=== PATIENT | male | born 1945 | race Asian ===

== ENCOUNTER 2017-04-05 11:49 | Emergency (ER) | payer MEDICARE ==
[~2017-04-05] VITALS: Ht 157.5 cm; Wt 45.5 kg
[2017-04-05] MEDS ORDERED: MELO-273 PO (11:54)
[2017-04-05] MEDS ORDERED: ISOS60TA4 PO (11:54)
[2017-04-05] MEDS ORDERED: LISI1TAB11 PO (11:54)
[2017-04-05] MEDS ORDERED: SIMV-259 PO (11:54)
[2017-04-05] MEDS ORDERED: DILT60SR PO (11:54)
[2017-04-05] MEDS ORDERED: GABA-531 PO (11:54)
[2017-04-05] MEDS ORDERED: TAMS0.4C32 PO (11:54)
[2017-04-05] MEDS ORDERED: ONDANSETRON HCL 4 MG/2 ML VIAL IVP ONE (12:15)
[2017-04-05] MEDS ORDERED: SODIUM CHLORIDE 0.9% 500 ML IV ONE (12:15)
[2017-04-05 12:29] LABS: BASOPHILS % (AUTO) 0.1 % (0.0-2.0); EOSINOPHILS % (AUTO) 0.9 % (1.0-6.0); HEMATOCRIT 51.5 % (41-53); HEMOGLOBIN 17.3 g/dL (13.5-17.5); LYMPHOCYTES # (AUTO) 0.7 K/uL (1.0-4.8); LYMPHOCYTES % (AUTO) 5.9 % (22.0-44.0); MEAN CORPUSCULAR HEMOGLOBIN 30.1 pg (26.0-34.0); MEAN CORPUSCULAR HGB CONC 33.6 G/dL (31.0-37.0); MEAN CORPUSCULAR VOLUME 90 fL (80-100); MONOCYTES # (AUTO) 0.5 K/uL (0.1-1.0); MONOCYTES % (AUTO) 4.3 % (2.0-9.0); NEUTROPHILS # (AUTO) 10.9 K/uL (1.8-7.7); PLATELET COUNT (AUTO) 247 K/uL (150-450); RED BLOOD CELL COUNT(AUTO) 5.74 MIL/uL (4.50-5.90); RED CELL DISTRIBUTION WIDTH 13.2 % (11.5-14.5); WHITE BLOOD COUNT (AUTO) 12.3 K/uL (4.5-11.0)
[2017-04-05 12:33] LABS: NEUTROPHILS % (AUTO) 88.8 % (40.0-70.0)
[2017-04-05 12:40] LABS: CREATININE 1.29 mg/dL (0.60-1.30); POTASSIUM 3.2 mmol/L (3.5-5.1)
[2017-04-05 12:47] LABS: ALBUMIN 3.7 g/dL (3.4-5.0); BILIRUBIN,TOTAL 0.5 mg/dL (0.1-1.0); TOTAL PROTEIN, SERUM 7.7 g/dL (6.4-8.2)
[2017-04-05] MEDS ORDERED: POTASSIUM CHLORIDE 20 MEQ ER TABLET PO ONE (13:15)
[2017-04-05 14:48] VITALS: BP 136/81
== END 2017-04-05 15:08 | disposition home or self-care (01) ==
LOC: EMS 11:52
DX: R11.2 Nausea with vomiting, unspecified (principal); I10 Essential (primary) hypertension; E78.00 Pure hypercholesterolemia, unspecified; Z88.0 Allergy status to penicillin
CPT/HCPCS: 36415; 80053; 83690; 84484; 85025; 93005; 96361; 96374; 99285; J2405; J7040